=== PATIENT | female | born 1975 | race African-American/Black ===

== ENCOUNTER → 2019-08-12 | Emergency (ER) | payer BC, OTHER ==
[~2019-08-12] VITALS: Ht 165.1 cm; Wt 92.1 kg
[~2019-08-12] MED LIST: cloNIDine HCL 0.1 MG TAB PO ONE
[2019-08-12 14:19] LABS: Basophils # (auto) 0 10 ^3/uL (0-0.2); Basophils % (auto) 0.7 % (0.0-2.0); Eosinophils # (auto) 0.1 10 ^3/uL (0-0.8); Eosinophils % (auto) 1.4 % (0.0-7.0); Hematocrit 40.6 % (36.0-46.0); Hemoglobin 13.4 g/dL (12.2-16.2); Lymphocytes # (auto) 1.6 10 ^3/uL (0.4-5.4); Lymphocytes % (auto) 24.4 % (10.0-50.0); Mean Corpuscular Hemoglobin 28.5 pg (28.0-32.0); Mean Corpuscular Hgb Conc. 33.1 g/dL (32.0-36.0); Mean Corpuscular Volume 86.1 fL (80.0-100.0); Monocytes # (auto) 0.4 10 ^3/uL (0-1.3); Monocytes % (auto) 6.8 % (0.0-12.0); Neutrophils # (auto) 4.3 10 ^3/uL (1.6-8.6); Neutrophils % (auto) 66.7 % (37.0-80.0); Nucleated Red Blood Cells % 0.1 %; Platelet Count (auto) 223 10^3/uL (140-450); Red Blood Cells 4.72 10^6/uL (4.0-5.20); Red Cell Distribution Width 14.1 % (11.8-14.3); White Blood Cell 6.4 10^3/uL (4.4-10.8)
[2019-08-12 14:38] LABS: Albumin 3.5 g/dL (3.4-5.0); Anion Gap 4 (5-15); Blood Urea Nitrogen 6 mg/dL (7-18); Calcium 8.6 mg/dL (8.5-10.1); Carbon Dioxide 27 mmol/L (21-32); Chloride 107 mmol/L (98-107); Glucose 88 mg/dL (74-106); Magnesium 2.1 mg/dL (1.6-2.6); Potassium 3.8 mmol/L (3.5-5.1); Sodium 138 mmol/L (136-145)
[2019-08-12 14:44] LABS: Alanine Aminotransferase 18 U/L (13-56); Alkaline Phosphatase 74 U/L (45-117); Aspartate Aminotransferase 8 U/L (15-37); Bilirubin, Total 0.7 mg/dL (0.2-1.0); GFR African American 124 mL/min; GFR Non-African American 103 mL/min; Total Protein 7.8 g/dL (6.4-8.2)
[2019-08-12 15:59] VITALS: BP 163/82
== END | disposition home or self-care (01) ==
LOC: ER 13:28
DX: I16.1 Hypertensive emergency (principal); I10 Essential (primary) hypertension
CPT/HCPCS: 36415; 71045; 80053; 83735; 84484; 85025; 93005